=== PATIENT | female | born 1940 | race Caucasian/White ===

== ENCOUNTER 2020-12-09 09:18 | Day surgery (SDC) | payer MEDICARE ==
[~2020-12-09] VITALS: Ht 157 cm; Wt 69.0 kg
[~2020-12-09 09:18] MED LIST: ALENDRONATE SOD70 MG PO; ATORVASTATIN CA10 MG PO; FAMOTIDINE20 MG PO; GLIPIZIDE ER5 MG PO; LEVOTHYROXINE137 MC1 PO; LISINOPRIL-HCT1 EAC1 PO; LISINOPRIL20 MG PO; MONTELUKAST SOD10 MG PO; PROVENTIL HFA6.7 GM INH; RESTASIS1 EACH OU; VITAMIN D310 MC3 PO
--- NOTE | 2020-12-09 15:18 | NUR ---
PT WAS A SHOULDER NO NEEDS AT THIS TIME
[2020-12-09] MEDS ORDERED: ASPIRIN81 MG PO (16:01)
[2020-12-09] MEDS ORDERED: FEOSOL325 MG PO (16:01)
[2020-12-10 05:39] LABS: BASOPHIL 0.1 % (0-2); EOSINOPHIL 0 % (0-7); HCT 29.4 % (37.0-47.0); HGB 9.6 g/dl (12.5-16.0); LYMPHOCYTE 6.8 % (15-48); MCH 31.2 pg (25.0-31.0); MCHC 32.7 g/dL (32.0-36.0); MCV 95.5 fL (78.0-100.0); MONOCYTE 5.3 % (0-12); MPV 9.6 fL (6.0-9.5); NEUTROPHIL 87.2 % (41-80); NRBC 0; PLT 193 K/uL (150-400); RBC 3.08 M/uL (4.20-5.40); RDW 12.3 % (11.5-14.0); WBC 16.3 K/uL (4.0-10.5)
[2020-12-10 05:58] LABS: BUN/CREAT RATIO (CALC) 28.4 RATIO; CREATININE 1.09 mg/dL (0.51-0.95); POTASSIUM 4.7 mmol/L (3.5-5.1)
[2020-12-10] MEDS ORDERED: NORCO 5-325 TA1 EACH PO (06:58)
== END 2020-12-10 11:39 | disposition home or self-care (01) ==
LOC: FAS 09:18 → FOFB 12:04 → FAS 12-10 11:39
PROVIDERS: Orthopaedic Surgery
DX: M19.012 Primary osteoarthritis, left shoulder (principal); E11.9 Type 2 diabetes mellitus without complications; I10 Essential (primary) hypertension; E78.5 Hyperlipidemia, unspecified; J45.909 Unspecified asthma, uncomplicated; K21.9 Gastro-esophageal reflux disease without esophagitis; Z79.84 Long term (current) use of oral hypoglycemic drugs; Z79.899 Other long term (current) drug therapy
CPT/HCPCS: 36415; 73020; 80048; 85025; 86850; 86900; 86901; 94010; 97162; 97166; 97530-GP; 97535; C1713; C1776; J0171; J0697; J1100; J1885; J2250; J2270; J2370; J2405; J2704; J2795; J7120